=== PATIENT | male | born 1995 | race Caucasian/White ===

== ENCOUNTER 2019-12-31 20:26 | Emergency (ER) | payer OTHER ==
[~2019-12-31] VITALS: Ht 180.3 cm; Wt 97.5 kg
[~2019-12-31 20:26] MED LIST: ADDERALL 15 MG15 MG PO; IBUPROFEN 600600 M1 PO
[2020-01-01] VITALS: BP 130/90
== END 2020-01-01 | disposition short-term general hospital (02) ==
LOC: M.ERS 20:26
DX: S60.414A Abrasion of right ring finger, initial encounter (principal); F17.210 Nicotine dependence, cigarettes, uncomplicated; W49.04XA Ring or other jewelry causing external constriction, initial encounter; Y93.89 Activity, other specified; Y92.89 Other specified places as the place of occurrence of the external cause; Y99.8 Other external cause status

== ENCOUNTER 2020-10-23 13:42 | Emergency (ER) | payer OTHER ==
[~2020-10-23] VITALS: Ht 182.9 cm; Wt 105.2 kg
[2020-10-23] MEDS ORDERED: MEDROLDOSEPACK PO (16:42)
[2020-10-23] MEDS ORDERED: TESSALON PERLE100 M1 PO (16:42)
[2020-10-23] MEDS ORDERED: VENTOLIN HFA 1818 GM INH (16:42)
[2020-10-23] MEDS ORDERED: DOXYCYCLINE 10100 MG PO (16:42)
[2020-10-23 16:55] VITALS: BP 126/68
== END 2020-10-23 16:56 | disposition home or self-care (01) ==
LOC: M.ERS 13:42
DX: J02.9 Acute pharyngitis, unspecified (principal); Z20.822 Contact with and (suspected) exposure to COVID-19; R05 Cough; F17.210 Nicotine dependence, cigarettes, uncomplicated